=== PATIENT | female | born 1975 | race Two or more races ===

== ENCOUNTER 2018-03-07 21:42 | Emergency (ER) | payer SELFPAY ==
[~2018-03-07] VITALS: Ht 170.2 cm; Wt 58.1 kg
[2018-03-07 22:14] VITALS: BP 133/75
--- NOTE | 2018-03-07 22:16 | PHYS DOC ---
Past Medical History Past Medical History: Hypertension Past Surgical History: Additional Past Surgical Histo: c sect x 2 Smoking: Quit Greater Than 1 Year Alcohol Use: None Drug Use: None Adult General Chief Complaint Chief Complaint: CHEST PAIN HPI HPI She was [place]-speaking. Patient is a 42 year old female who presents with chest pain and headache Patient has had progressive chest pain over the last 4 months. She was evaluated for chest pain 4 months ago and sent home. Over the last 2 months, she 's had recurrent chest pain left-sided radiating to her left arm not associated with exertion. Occasionally, it radiates to her neck. Her chest pain got worse tonight and she was brought to the emergency department. Patient denies control pill use. She states she has a blood clot in her heart. She denies DVT. Denies any trauma. She has not had a cough or fevers. She's had a chronic headache for the last 2 years. She denies any weakness or numbness or vomiting. She denies any fevers. Review of Systems Review of Systems Constitutional: Denies fever or chills Eyes: Denies change in visual acuity, redness, or eye pain HENT: Denies nasal congestion or sore throat Respiratory: Denies cough or shortness of breath Cardiovascular: with chest pain, no palpitations GI: Denies abdominal pain, nausea, vomiting, bloody stools or diarrhea : Denies dysuria or hematuria Musculoskeletal: Denies back pain or joint pain Integument: Denies rash or skin lesions Neurologic: with chronic headache, no focal weakness or sensory changes Endocrine: Denies polyuria or polydipsia All other systems were reviewed and found to be within normal limits, except as documented in this note. Current Medications Current Medications Current Medications Medications (Trade) Dose Ordered Sig/[facility] Start Time Stop Time Status Last Admin Dose Admin Acetaminophen (Tylenol) 1,000 mg 1X ONCE 03/08/18 02:00 03/08/18 02:19 DC 03/08/18 02:00 1,000 MG Ketorolac Tromethamine (Toradol 15mg Vial) 15 mg 1X ONCE 03/07/18 23:45 03/07/18 23:46 DC 03/07/18 23:39 15 MG Multi-Ingredient Mouthwash/Gargle (Gi Cocktail) 20 ml 1X ONCE 03/07/18 22:30 03/07/18 22:31 DC 03/07/18 22:30 20 ML Allergies Allergies Allergies Coded Allergies Type Severity Reaction Last Updated Verified No Known Drug Allergies 07/03/14 No Physical Exam Physical Exam Constitutional: Well developed, well nourished, no acute distress, non-toxic appearance. HENT: Normocephalic, atraumatic, bilateral external ears normal, oropharynx moist, no oral exudates, nose normal. Eyes: PERRLA, EOMI, conjunctiva normal, no discharge. Neck: Normal range of motion, no tenderness, supple, no stridor. Cardiovascular:Heart rate regular rhythm, no murmur Lungs & Thorax: Bilateral breath sounds clear to auscultation, with left anterior chest wall tenderness Abdomen: Bowel sounds normal, soft, no tenderness, no masses, no pulsatile masses. Skin: Warm, dry, no erythema, no rash. Back: No tenderness, no CVA tenderness. Extremities: No tenderness, no cyanosis, no clubbing, ROM intact, no edema. 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 Gait normal. Psychologic: Affect anxious, judgement normal, mood normal. Current Patient Data Vital Signs Vital Signs Date Time Temp Pulse Resp B/P (MAP) Pulse Ox O2 Delivery O2 Flow Rate FiO2 03/07/18 22:14 98.2 78 18 133/75 (94) 98 Room Air 98.2 Lab Values Laboratory Tests Test 03/07/18 21:50 03/08/18 00:15 White Blood Count 12.6 x10^3/uL (4.0-11.0) H Red Blood Count 4.72 x10^6/uL (3.50-5.40) Hemoglobin 9.7 g/dL (12.0-15.5) L Hematocrit 31.3 % (36.0-47.0) L Mean Corpuscular Volume 66 fL (79-100) L Mean Corpuscular Hemoglobin 20 pg (25-35) L Mean Corpuscular Hemoglobin Concent 31 g/dL (31-37) Red Cell Distribution Width 18.4 % (11.5-14.5) H Platelet Count 372 x10^3/uL (140-400) Neutrophils (%) (Auto) 74 % (31-73) H Lymphocytes (%) (Auto) 17 % (24-48) L Monocytes (%) (Auto) 7 % (0-9) Eosinophils (%) (Auto) 1 % (0-3) Basophils (%) (Auto) 1 % (0-3) Neutrophils # (Auto) 9.4 x10^3uL (1.8-7.7) H Lymphocytes # (Auto) 2.1 x10^3/uL (1.0-4.8) Monocytes # (Auto) 0.9 x10^3/uL (0.0-1.1) Eosinophils # (Auto) 0.1 x10^3/uL (0.0-0.7) Basophils # (Auto) 0.1 x10^3/uL (0.0-0.2) Platelet Estimate Adequate (ADEQUATE) Hypochromasia Marked Anisocytosis Slight Microcytosis Marked Ovalocytes Few D-Dimer (Debra) 0.45 ug/mlFEU (0.00-0.50) Sodium Level 140 mmol/L (136-145) Potassium Level 3.7 mmol/L (3.5-5.1) Chloride Level 103 mmol/L (98-107) Carbon Dioxide Level 25 mmol/L (21-32) Anion Gap 12 (6-14) Blood Urea Nitrogen 16 mg/dL (7-20) Creatinine 0.8 mg/dL (0.6-1.0) Estimated GFR (Cockcroft-Gault) 77.9 BUN/Creatinine Ratio 20 (6-20) Glucose Level 104 mg/dL (70-99) H Calcium Level 9.3 mg/dL (8.5-10.1) Total Bilirubin 0.2 mg/dL (0.2-1.0) Aspartate Amino Transferase (AST) 20 U/L (15-37) Alanine Aminotransferase (ALT) 31 U/L (14-59) Alkaline Phosphatase 69 U/L (46-116) Creatine Kinase 153 U/L (26-192) Troponin I Quantitative < 0.017 ng/mL (0.000-0.055) Total Protein 8.4 g/dL (6.4-8.2) H Albumin 4.0 g/dL (3.4-5.0) Albumin/Globulin Ratio 0.9 (1.0-1.7) L Lipase 125 U/L (73-393) Procalcitonin < 0.10 ng/mL (0.00-0.10) Serum Test, Qualitative Negative (NEG) Urine Collection Type Unknown Urine Color Yellow Urine Clarity Clear Urine pH 5.0 Urine Specific Sunol 1.025 Urine Protein Negative mg/dL (NEG-TRACE) Urine Glucose (UA) Negative mg/dL (NEG) Urine Ketones (Stick) Trace mg/dL (NEG) Urine Blood Small (NEG) Urine Nitrite Negative (NEG) Urine Bilirubin Negative (NEG) Urine Urobilinogen Dipstick 0.2 mg/dL (0.2 mg/dL) Urine Leukocyte Esterase Negative (NEG) Urine RBC 3-5 /HPF (0-2) Urine WBC 1-4 /HPF (0-4) Urine Squamous Epithelial Cells Few /LPF Urine Bacteria Few /HPF (0-FEW) Urine Mucus Marked /LPF Laboratory Tests 03/07/18 21:50 Laboratory Tests 03/07/18 21:50 EKG EKG ECG 21:50 NSR @ [address]-T changes Radiology/Procedures Radiology/Procedures [facility] [address] [place] [address] IMAGING REPORT Signed PATIENT: PEYTON BUSBY ACCOUNT: [id number] : 1975 LOCATION: ER AGE: 42 SEX: F EXAM STATUS: DEP ER ORD. PHYSICIAN: SADAF CRUZ MD REASON: chest pain PROCEDURE: PORTABLE CHEST 1V PROCEDURE: PORTABLE CHEST 1V CLINICAL INDICATION: CP, HEADACHE X1 DAY. HX OF HBP COMPARISON: None FINDINGS: No pneumothorax identified. Cardiac and mediastinal contours unremarkable. No pulmonary consolidation or acute airspace disease. No acute osseous abnormalities identified. IMPRESSION: No pulmonary consolidation or acute airspace disease. Electronically signed by: Fernando Blanca DO (03/08/2018 4:05 AM) [facility] DICTATED and SIGNED BY: FERNANDO BLANCA DO DATE: 03/08/18 0405 Course & Med Decision Making Course & Med Decision Making Pertinent Labs and Imaging studies reviewed. (See chart for details) Emergency Department Course Patient presents with chest pain and headache DDx- ACS, PE, Pneumonia, tension headache The patient was stable in the ED improved after GI cocktail and Toradol. ECG and Troponin showed no evidence of ACS. D-dimer normal doubt PE. CXR unremarkable, no CHF or pneumonia. Neurologic exam normal. Labs remarkable for leukocytosis. Procalcitonin normal, doubt infection. U/A unremarkable. The cause of the leukocytosis is unclear. I spoke with the patient, gave her results and advised she follow-up with her PCP for outpatient cardiac stress testing and further evaluation. Patient given prescription for Pepcid and Maalox. Dragon Disclaimer Dragon Disclaimer This electronic medical record was generated, in whole or in part, using a voice recognition dictation system. Departure Departure Impression: Primary Impression: Chest pain Additional Impressions: Headache Leukocytosis Disposition: HOME, SELF-CARE Condition: STABLE Referrals: NO PCP (PCP) Follow-up tomorrow for further evaluation KAREL PEREZ MD Patient Instructions: Chest Pain (Nonspecific), General Headache Without Cause , Leukocytosis Additional Instructions: If you develop worse pain, shortness of breath, fevers, weakness, numbness, vomiting return to the emergency department immediately Scripts Mag Hydrox/Al Hydrox/Simeth (MAALOX MAXIMUM STRENGTH SUSP) 355 Ml Oral.susp 15 ML PO TIDACHC for 20 Days, #355 ML Prov: SADAF CRUZ MD 03/08/18 Famotidine (PEPCID) 40 Mg Tablet 40 MG PO HS for 20 Days, #20 TAB Prov: SADAF CRUZ MD 03/08/18 Problem Qualifiers Primary Impression: Chest pain Chest pain type: precordial pain Qualified Codes: R07.2 - Precordial pain Additional Impressions: Headache Headache type: tension-type Headache chronicity pattern: chronic headache Intractability: not intractable Qualified Codes: G44.229 - Chronic tension- type headache, not intractable Leukocytosis Leukocytosis type: unspecified Qualified Codes: D72.829 - Elevated white blood cell count, unspecified SADAF CRUZ MD Mar 07, 2018 22:16
[2018-03-07 22:26] LABS: BASO # 0.1 x10^3/uL (0.0-0.2); BASO % 1 % (0-3); EOS # 0.1 x10^3/uL (0.0-0.7); EOS % 1 % (0-3); HEMATOCRIT 31.3 % (36.0-47.0); HEMOGLOBIN 9.7 g/dL (12.0-15.5); LYMPH # 2.1 x10^3/uL (1.0-4.8); LYMPH % 17 % (24-48); MEAN CORPUSCULAR HEMOGLOBIN 20 pg (25-35); MEAN CORPUSCULAR HGB CONC 31 g/dL (31-37); MEAN CORPUSCULAR VOLUME 66 fL (79-100); MONO # 0.9 x10^3/uL (0.0-1.1); MONO % 7 % (0-9); NEUT # 9.4 x10^3uL (1.8-7.7); NEUT % 74 % (31-73); PLATELET COUNT 372 x10^3/uL (140-400); RED BLOOD COUNT 4.72 x10^6/uL (3.50-5.40); RED CELL DISTRIBUTION WIDTH 18.4 % (11.5-14.5); WHITE BLOOD COUNT 12.6 x10^3/uL (4.0-11.0)
[2018-03-07 22:30] LABS: CALCIUM 9.3 mg/dL (8.5-10.1); CREATININE 0.8 mg/dL (0.6-1.0); GFR 77.9; POTASSIUM 3.7 mmol/L (3.5-5.1)
[2018-03-07] MEDS: LIDO:MAALOX 1:1 20 ML SINGLE DOSE. SWSW ONE (22:30)
[2018-03-07 22:32] LABS: PREG TEST PT QUAL NEGATIVE (NEG)
[2018-03-07 22:36] LABS: ALBUMIN/GLOBULIN RATIO 0.9 (1.0-1.7); TOTAL BILIRUBIN 0.2 mg/dL (0.2-1.0); TOTAL PROTEIN 8.4 g/dL (6.4-8.2)
[2018-03-07 22:56] LABS: PLT ESTIMATE ADEQUATE (ADEQUATE)
[2018-03-07 22:58] LABS: ANISOCYTOSIS SLIGHT; HYPOCHROMIA MARKED; MICROCYTOSIS MARKED; OVALOCYTES FEW
[2018-03-07] MEDS: KETOROLAC 15 MG/ML VIAL. IV ONE (23:39)
[2018-03-08 00:34] LABS: BILIRUBIN,URINE NEGATIVE (NEG); CLARITY,URINE CLEAR; COLOR,URINE YELLOW; NITRITE,URINE NEGATIVE (NEG); PROTEIN,URINE NEGATIVE (NEG-TRACE); UROBILINOGEN,URINE 0.2 mg/dL (0.2 mg/dL)
[2018-03-08 00:42] LABS: BACTERIA,URINE FEW /HPF (0-FEW); SQUAMOUS EPITHELIAL CELL,UR FEW /LPF
[2018-03-08] MEDS ORDERED: MAG355OR12 PO (01:55)
[2018-03-08] MEDS ORDERED: FAMO40TA57 PO (01:55)
[2018-03-08] MEDS: ACETAMINOPHEN 500 MG TABLET PO ONE (02:00)
--- NOTE | 2018-03-08 04:09 | RAD ---
PROCEDURE: PORTABLE CHEST 1V CLINICAL INDICATION: CP, HEADACHE X1 DAY. HX OF HBP COMPARISON: None FINDINGS: No pneumothorax identified. Cardiac and mediastinal contours unremarkable. No pulmonary consolidation or acute airspace disease. No acute osseous abnormalities identified. IMPRESSION: No pulmonary consolidation or acute airspace disease. Electronically signed by: Fernando Blanca DO (03/08/2018 4:05 AM) [facility]
--- NOTE | 2018-03-08 04:17 | EKG ---
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
== END 2018-03-08 02:19 | disposition home or self-care (01) ==
LOC: ER 21:42
DX: G44.229 Chronic tension-type headache, not intractable (principal); R07.89 Other chest pain; D72.829 Elevated white blood cell count, unspecified; I10 Essential (primary) hypertension; Z87.891 Personal history of nicotine dependence; Z98.890 Other specified postprocedural states
CPT/HCPCS: 36415; 71045; 80053; 81001; 82550; 83690; 84145; 84484; 84703; 85025; 85379; 93005; 96374; 99285; J1885